=== PATIENT | male | born 1970 | race Caucasian/White ===

== ENCOUNTER 2017-12-11 22:57 | Inpatient (IN) | payer OTHER ==
[~2017-12-11] VITALS: Ht 182.9 cm; Wt 95.3 kg
[~2017-12-11 22:57] MED LIST: ACYCLOVIR 400400 MG PO; AMBIEN 5 MG TABL5 M1 PO; BACTRIM DS TAB1 EACH PO; LASIX 40 MG TAB40 M2 PO; MELATONIN3 MG PO; NOXAFIL100 MG PO; POTASSIUM20 PO; PREDNISONE 10 M10 MG PO; PROTONIX40 M4 PO; TOPROL XL25 MG PO; URSO FORTE500 M1 PO; VITAMIN D2400 UNIT PO; ZOFRAN ODT4 MG PO
[2017-12-11 22:58] VITALS: BP 139/77
[2017-12-11 23:15] LABS: HEMATOCRIT 42.3 % (42.0-52.0); HEMOGLOBIN 14.2 gm/dL (14.0-18.0); MCH 32.7 pg (26.0-34.0); MCHC 33.5 g/dL (28.0-37.0); MCV 97.4 fL (80.0-100.0); MPV 8.5 fl. (7.2-11.1); NUCLEATED RBCS 0 /100WBC; PLATELET COUNT* 416 thou/uL (150-400); RBC 4.34 mil/uL (4.50-6.00); WBC 22.5 thou/uL (4.0-11.0)
[2017-12-11 23:26] LABS: ANION GAP 18 mmol/L (7-16); BUN 22 mg/dL (7-18); CALCIUM 8.2 mg/dL (8.5-10.1); CHLORIDE 99 mmol/L (98-107); CO2 20 mmol/L (21-32); CREATININE 1.3 mg/dL (0.6-1.3); GLUCOSE 154 mg/dL (70-99); POTASSIUM 4.3 mmol/L (3.5-5.1); SODIUM 137 mmol/L (136-145)
[2017-12-11 23:26] LABS: URINE BILIRUBIN NEGATIVE (Negative); URINE BLOOD 2+ (Negative); URINE CLARITY CLEAR; URINE COLOR YELLOW; URINE GLUCOSE-RANDOM NEGATIVE (Negative); URINE KETONES NEGATIVE (Negative); URINE LEUKOCYTES-REFLEX 1+ (Negative); URINE NITRITE-REFLEX NEGATIVE (Negative); URINE PROTEIN TRACE (Negative); URINE SPECIFIC GRAVITY >= 1.030 (1.005-1.030); URINE UROBILINOGEN 0.2 E.U./dl (0.2-1.0)
[2017-12-11 23:30] LABS: PROTIME 9.6 Seconds (9.20-11.50)
[2017-12-11 23:33] LABS: AMP/METHAMP Negative (Negative); BARBITURATES Negative (Negative); BENZODIAZEPINES Negative (Negative); COCAINE Negative (Negative); METHADONE Negative (Negative); OPIATES Negative (Negative); PCP Negative (Negative); THC POSITIVE (Negative)
[2017-12-11 23:36] LABS: SQUAMOUS 0-3 Few /LPF (0-3); TRANSITIONAL EPITHEL CELL 4-10 Moderate /LPF (None Seen)
[2017-12-11 23:37] LABS: AMORPHOUS URATES Moderate /LPF (None Seen); BACTERIA-REFLEX >30 Many /HPF (None Seen); CASTS None Seen /LPF (None Seen); MUCUS 4-6 Moderate strn/LPF (None Seen); URINE WBC-REFLEX >25 Many /HPF (0-5); WBC CLUMPS Few (None Seen)
[2017-12-11 23:38] LABS: ALBUMIN 3.4 g/dL (3.4-5.0); ALKALINE PHOSPHATASE 119 U/L (46-116); LIPASE 161 U/L (73-393); NT-PRO BRAIN NAT PEPTIDE 1013 pg/mL (<300); SGOT 49 U/L (15-37); SGPT 80 U/L (30-65); TOTAL BILIRUBIN 0.3 mg/dL (<0.1-1.0); TOTAL PROTEIN 6.4 g/dL (6.4-8.2); TROPONIN-I LEVEL <0.06 ng/mL (<0.06)
[2017-12-12] VITALS (18 sets, daily range): BP systolic 118–141; BP diastolic 63–81
[2017-12-12 00:09] LABS: INFLUENZA A ANTIGEN None Detected (None Detect); INFLUENZA B ANTIGEN None Detected (None Detect)
[2017-12-12 00:58] LABS: ABSOLUTE LYMPHOCYTES 2.5 thou/uL (0.8-5.3); ABSOLUTE MONOCYTES 1.4 thou/uL (0.0-1.2); ABSOLUTE NEUTROPHILS 18.7 thou/uL (1.6-8.1); CLUMPED PLTS FEW; PLATELET ESTIMATE ADEQUATE; TOXIC GRANULATION 1+
[2017-12-12 06:30] LABS: MAGNESIUM 2.1 mg/dL (1.8-2.4); PHOSPHORUS* 2.6 mg/dL (2.5-4.9)
[2017-12-12 09:10] LABS: ABSOLUTE BASOPHILS 0.1 thou/uL (0.0-0.2); ABSOLUTE LYMPHOCYTES 2.4 thou/uL (0.8-5.3); ABSOLUTE MONOCYTES 1.9 thou/uL (0.0-1.2); ABSOLUTE NEUTROPHILS 22.9 thou/uL (1.6-8.1); BASOPHILS 0.4 %; EOSINOPHILS 0.1 %; HEMOGLOBIN 12.6 gm/dL (14.0-18.0); LYMPHOCYTES 8.9 %; MCH 32.6 pg (26.0-34.0); MCHC 34.1 g/dL (28.0-37.0); MCV 95.7 fL (80.0-100.0); MONOCYTES 6.9 %; MPV 8.4 fl. (7.2-11.1); NUCLEATED RBCS 0 /100WBC; PLATELET COUNT* 352 thou/uL (150-400); POLYS 83.7 %; RBC 3.87 mil/uL (4.50-6.00); RDW-CV 15.4 % (10.5-14.5); WBC 27.3 thou/uL (4.0-11.0)
[2017-12-12 09:35] LABS: ALBUMIN 2.9 g/dL (3.4-5.0); CALCIUM 7.3 mg/dL (8.5-10.1); CREATININE 0.8 mg/dL (0.6-1.3); POTASSIUM 3.6 mmol/L (3.5-5.1); TOTAL BILIRUBIN 0.4 mg/dL (<0.1-1.0); TOTAL PROTEIN 5.3 g/dL (6.4-8.2)
--- NOTE | 2017-12-12 10:33 | EKG ---
[place] [address] ELECTROCARDIOGRAM REPORT Name: ARMIN LITTLE Room: [address] ADM IN .R.#: [id number] Admission: 12/12/17 Attend Phys: Leslye Leyva Discharge: Date of : 68 Report #: [id number] THIS REPORT FOR: //name// [facility] ED Test Date: 2017-12-11 Test Time: 23:02:54 Pat Name: ARMIN LITTLE Department: Room: [facility] Gender: M Route Delivery Driver: SHAKIRA Bagley : 1970 Requested By: Yamileth Caba Order Number: [id number] MD: Pio Leonard Measurements Intervals [place] Rate: 69 P: 59 UT: 135 QRS: 59 QRSD: 103 T: 53 QT: 465 QTc: 499 Interpretive Statements Sinus rhythm Probable left atrial enlargement Borderline prolonged QT interval Compared to ECG 06/25/2016 16:55:03 Sinus bradycardia no longer present Atrial premature complex(es) no longer present Electronically Signed On 12-12-2017 10:33:31 SUBSTITUTE TEACHER by Pio Leonard [email or web address] <ELECTRONICALLY SIGNED> By: Pio Leonard MD, [facility] 12/12/17 1033 01 01 Pio Leonard MD, [facility] /EPI
--- NOTE | 2017-12-13 09:19 | CON ---
[address] [address] CONSULTATION Name: ARMIN LITTLE Room: [address] IN M.R.#: [id number] Admission: 12/12/17 Attend Phys: Leslye Leyva Discharge: 12/12/17 Date of : 68 Report #: [id number] THIS REPORT FOR: //name// CC: AIXA Larios DATE OF SERVICE: 12/12/2017 INFECTIOUS DISEASE CONSULTATION ATTENDING PHYSICIAN: Dr. Larios. REASON FOR EVALUATION: Complicated urinary tract infection with sepsis. HISTORY OF PRESENT ILLNESS: Chart reviewed, the patient examined. This is a 47-year-old male with previous history of leukemia, who underwent stem cell transplant in 2015, who reports no particular problems, although there was referral in the H and P of possible wqsgl-fehvuo-pbry disease. He is on chronic corticosteroids as well as some antibiotic prophylaxis. He apparently had fairly abrupt onset of profound encephalopathy which was quite combative. There was a question of seizure activity. He did apparently dislocate his left shoulder during the episode and he was resisting assistance in a manner when the EMS arrived and he was given ketamine. It is not clear that he had any recent fevers. He denies significant pulmonary or gastrointestinal related complaints at this point. Evaluation including urinalysis which showed marked pyuria as well as marked bacteriuria. He did have mildly elevated liver function tests. Lactic acid was 8.0, repeat is down to 5.5. Influenza antigen was negative. White blood cell count was 22.5. Chest x-ray showed no acute process. He was empirically started on piperacillin and tazobactam. He states he is better and actually wants to go home, although he does admit to being quite fatigued. ALLERGIES: None. CURRENT MEDICATIONS: Include enoxaparin, melatonin, zolpidem and levofloxacin was started today. He is on posaconazole, pantoprazole, prednisone 10 daily, metoprolol, cholecalciferol, acyclovir, p.r.n. analgesics and antiemetics. He is not on pressor support. PAST MEDICAL HISTORY: As described above. There is also a previous brain aneurysm rupture in 2016, RSV, history of PTSD and anxiety. SOCIAL HISTORY: Former smoker. No ethanol. Occasionally uses marijuana. FAMILY HISTORY: Noncontributory. REVIEW OF SYSTEMS: [place] [address] CONSULTATION Name: ARMIN LITTLE Room: [address]#: [id number] Admission: 12/12/17 Attend Phys: Leslye Leyva Discharge: 12/12/17 Date of : 68 Report #: [id number] PHYSICAL EXAMINATION: GENERAL: He appears somewhat chronically ill, slightly undernourished. VITAL SIGNS: Temperature 98.1, pulse 79, respirations 12 and blood pressure 124/72. SKIN: Warm, dry. No rashes. HEENT: Otherwise, unremarkable. NECK: Supple. LUNGS: Somewhat diminished. Occasional crackle at the base. HEART: Regular. I do not appreciate a murmur. ABDOMEN: Soft, nontender and nondistended. No peritoneal signs. GENITOURINARY: Deferred. RECTAL: Deferred. LABORATORY DATA: CTA chest PE protocol showed a right peritracheal mass, consistent with calcified lymph node. Lactic acid serially was 8.0, 4.[address] abdomen and pelvis, there was no evidence of acute process. The CT head shows left craniotomy defect and aneurysm clips along the left temporal fossa, consistent with prior clipping. CBC: White count 22.5, H and H 14.2 and 43.3 and platelets of 416,000. He did have 1+ toxic granulations and a monocytosis of 1400. Influenza antigen was negative. Alcohol less than 10. Sodium 137, potassium 4.3, chloride 99, bicarbonate is 20, anion gap of 18, BUN and creatinine 22 and 1.3 and glucose of 154. AST of 49, ALT of 80 and total bilirubin of 0.3. Lipase of 161 and a positive screen for marijuana. Urinalysis greater than 25 white cells with some few wbc clumps and greater than 30 bacteria. ASSESSMENT AND PLAN: Complicated urinary tract infection with early sepsis. We will continue therapy with piperacillin-tazobactam. I think we can adjust the dose downward slightly. He will await the identification of any organisms that may grow from the urine or the blood at this point. He seems to have responded fairly quickly at this point and his hemodynamics have improved. His mental status is clearly improved. We will maintain his current prophylactic regimen as well. <ELECTRONICALLY SIGNED> By: Meir Peters MD 12/13/17 0919 0909 [id number] Peters MD /nt
--- NOTE | 2017-12-16 07:23 | EEG ---
[address] [address] EEG STUDY REPORT Name: ARMIN LITTLE Room: [address] IN M.R.#: [id number] Admission: 12/12/17 Attend Phys: Leslye Leyva Discharge: 12/12/17 Date of : 68 Report #: [id number] THIS REPORT FOR: //name// CC: AIXA Larios DATE OF SERVICE: 12/12/2017 This patient is being evaluated for seizure disorder. EEG was done by placing the electrodes by standard 10-20 system of electrode placement. Both referential and sequential montages were used for recording. Background activity in this patient's EEG is about 8-9 Hz and 30 microvolt. The patient goes to sleep that is associated with bilateral slowing and vertex sharp waves. The patient had an episode where the patient demonstrated recurrent sharper activity arising from the left temporal lobe. IMPRESSION: This patient's EEG demonstrates an episode of recurrent sharper activity arising from the left temporal lobe. If clinically correlated, that finding will be consistent with the diagnosis of seizure disorder arising from the left temporal lobe. Clinical correlation is recommended. Thank you very much for this referral. <ELECTRONICALLY SIGNED> By: Kashif Gibson MD 12/16/17 0723 1728 [id number] Gibson MD /nt
--- NOTE | 2017-12-16 07:23 | CON ---
[facility] [address] [place] [address] CONSULTATION Name: ARMIN LITTLE Room: [address] IN M.R.#: [id number] Admission: 12/12/17 Attend Phys: Leslye Leyva Discharge: 12/12/17 Date of : 68 Report #: [id number] THIS REPORT FOR: //name// CC: AIXA Larios DATE OF SERVICE: 12/12/2017 HISTORY OF PRESENT ILLNESS: This is a 47-year-old male patient who was evaluated by me for a seizure. The history is from the patient's . I did talk to admitting physician, Dr. Montgomery and I discussed the patient with the nurses looking after this patient. described a pretty typical seizure. This patient had turned towards one side. He had a loud cry followed by stiffness and followed by jerking motions. His tongue was sore after that and he was confused after that. He was seen in the Emergency Room. He was given Keppra one dose in the Emergency Room at that time. He keeps having some episodes where his speech stops in the middle of the sentence and he looks dazed according to the . These episodes have been happening the whole day. REVIEW OF SYSTEMS: Very extensive in this patient. This patient has a history of a cerebral aneurysm rupture. He has encephalomalacia secondary to that. His neurological deficit is difficult to tell. According to the , he did have some speech difficulty, but otherwise he was not able to go back to work, but able to function. He thinks he may have been on seizure medications during the aneurysm surgery, but not after that. I reviewed the record in the computer and it looks like he was given Keppra when he presented here with a subarachnoid hemorrhage. He is running a temperature. 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 PHYSICAL EXAMINATION: Pretty limited. The patient is alert. He can follow commands, but he is not oriented. He did not know what hospital he was in, but he knew he was in [facility]. I tried to do rest of the neurological examination, but because of his orientation, it was difficult. Looks like he can move all four extremities. He can move his eyes in multiple directions. He does not appear to be in much respiratory distress. His vital signs indicate that he did have a temperature of 100.4, his blood pressure 125/68, respirations 17 and pulse is 67. IMAGING: I reviewed his CT scan as well as EEG. CT scan shows left craniotomy and left sided infarct. EEG demonstrates seizure activity arising from that infarct. IMPRESSION: My feeling was that this patient had a seizure and he continued to have partial seizures. He is being transferred to [facility] [place] [address] CONSULTATION Name: ARMIN LITTLE Room: [address] IN [facility].#: [id number] Admission: 12/12/17 Attend Phys: Leslye Leyva Discharge: 12/12/17 Date of : 68 Report #: [id number] 500 mg of Keppra and I gave him another 500 mg of Keppra. If his episode does not stop, we need to give him more seizure medication or may even have to give him alternate medication like Vimpat or Dilantin, but I was told that they are just waiting for ambulance to pick him up. Even then, I wanted him to have Keppra before ____ and the nurses have told me that they will give him Keppra before he goes. They must take seizure precautions. More than 50 minutes of time was spent taking care of this patient today and majority of the time was spent counseling the family and the patient and coordinating his care by reviewing his prior records, his imaging study as well as talking to another health director of home care hospice. <ELECTRONICALLY SIGNED> By: Kashif Gibson MD 12/16/17 0723 1818 [id number] Gibson MD /oumou
[2018-06-11] MEDS ORDERED: SERTRALINE HCL50 MG PO (15:40)
[2018-06-11] MEDS ORDERED: REMERON15 MG PO ×2 (15:43→15:44)
== END 2017-12-12 20:07 | disposition short-term general hospital (02) | DRG 871 ==
LOC: M.ERS 22:57 → M.TBA-ER 12-12 01:26 → M.ICU 12-12 01:26
PROVIDERS: Emergency Medicine; ADMIT Internal Medicine
PROC: 4A00X4Z Measurement of Central Nervous Electrical Activity, External Approach (ICD-10-PCS; principal; 2017-12-12)
PROC: 0RSKXZZ Reposition Left Shoulder Joint, External Approach (ICD-10-PCS; principal; 2017-12-12)
DX: A41.9 Sepsis, unspecified organism (principal); G92 Toxic encephalopathy; I61.9 Nontraumatic intracerebral hemorrhage, unspecified; N39.0 Urinary tract infection, site not specified; G40.109 Localization-related (focal) (partial) symptomatic epilepsy and epileptic syndromes with simple partial seizures, not intractable, without status epilepticus; Z94.84 Stem cells transplant status; F41.9 Anxiety disorder, unspecified; F43.10 Post-traumatic stress disorder, unspecified; I10 Essential (primary) hypertension; K21.9 Gastro-esophageal reflux disease without esophagitis; S43.015A Anterior dislocation of left humerus, initial encounter; X58.XXXA Exposure to other specified factors, initial encounter; Z79.899 Other long term (current) drug therapy; Z79.52 Long term (current) use of systemic steroids; Z87.891 Personal history of nicotine dependence; Z86.73 Personal history of transient ischemic attack (TIA), and cerebral infarction without residual deficits; Z85.6 Personal history of leukemia; Y93.89 Activity, other specified; Y92.89 Other specified places as the place of occurrence of the external cause; Y99.8 Other external cause status

== ENCOUNTER 2017-12-25 09:03 | Emergency (ER) | payer OTHER ==
[~2017-12-25] VITALS: Ht 167.6 cm; Wt 88.9 kg
[2017-12-25] MEDS ORDERED: KEPPRA 500 MG500 M1 PO (09:13)
[2017-12-25] MEDS ORDERED: NORCO 5-325 TA1 EACH PO (10:58)
[2017-12-25 11:00] VITALS: BP 164/89
[2018-06-11] MEDS ORDERED: SERTRALINE HCL50 MG PO (15:40)
[2018-06-11] MEDS ORDERED: REMERON15 MG PO ×2 (15:43→15:44)
== END 2017-12-25 11:00 | disposition home or self-care (01) ==
LOC: M.ERS 09:03
DX: S43.005A Unspecified dislocation of left shoulder joint, initial encounter (principal); X58.XXXA Exposure to other specified factors, initial encounter; Y93.89 Activity, other specified; Y92.89 Other specified places as the place of occurrence of the external cause; Y99.8 Other external cause status

== ENCOUNTER 2018-06-11 15:20 | Emergency (ER) | payer OTHER, MEDICARE ==
[~2018-06-11] VITALS: Ht 182.9 cm; Wt 75.8 kg
[~2018-06-11 15:20] MED LIST changes: +KEPPRA 500 MG500 M1 PO; +NORCO 5-325 TA1 EACH PO
[2018-06-11] MEDS ORDERED: SERTRALINE HCL50 MG PO ×2 (15:40)
[2018-06-11] MEDS ORDERED: PRAVACHOL40 MG PO (15:40)
[2018-06-11] MEDS ORDERED: VITAMIN D325 GM PO (15:41)
[2018-06-11] MEDS ORDERED: RAPAMUNE1 MG PO (15:42)
[2018-06-11] MEDS ORDERED: REMERON15 MG PO ×3 (15:43→15:44)
[2018-06-11] MEDS ORDERED: OXYCONTIN15 MG PO (15:44)
[2018-06-11] MEDS ORDERED: LEXAPRO 10 MG T10 M2 PO (15:44)
[2018-06-11] MEDS ORDERED: MS CONTIN15 MG PO (15:45)
[2018-06-11] MEDS ORDERED: CYCLOBENZAPRINE5 MG PO (15:45)
[2018-06-11 15:58] LABS: ABSOLUTE BASOPHILS 0.1 thou/uL (0.0-0.2); ABSOLUTE LYMPHOCYTES 1.7 thou/uL (0.8-5.3); ABSOLUTE MONOCYTES 0.9 thou/uL (0.0-1.2); ABSOLUTE NEUTROPHILS 11.7 thou/uL (1.6-8.1); EOSINOPHILS 0.1 %; HEMATOCRIT 38.4 % (42.0-52.0); HEMOGLOBIN 12.9 gm/dL (14.0-18.0); LYMPHOCYTES 11.6 %; MCH 29.6 pg (26.0-34.0); MCHC 33.6 g/dL (28.0-37.0); MCV 88.1 fL (80.0-100.0); MONOCYTES 6.5 %; NUCLEATED RBCS 0 /100WBC; PLATELET COUNT* 661 thou/uL (150-400); POLYS 80.8 %; RBC 4.35 mil/uL (4.50-6.00); WBC 14.5 thou/uL (4.0-11.0)
[2018-06-11 16:12] LABS: ANION GAP 12 mmol/L (7-16); BUN 7 mg/dL (7-18); CALCIUM 8.9 mg/dL (8.5-10.1); CHLORIDE 100 mmol/L (98-107); CO2 23 mmol/L (21-32); CREATININE 0.8 mg/dL (0.6-1.3); GLUCOSE 119 mg/dL (70-99); POTASSIUM 3.6 mmol/L (3.5-5.1); SODIUM 135 mmol/L (136-145)
[2018-06-11 16:18] LABS: ALBUMIN 3.4 g/dL (3.4-5.0); ALKALINE PHOSPHATASE 113 U/L (46-116); LIPASE 62 U/L (73-393); SGOT 22 U/L (15-37); SGPT 21 U/L (30-65); TOTAL BILIRUBIN 0.2 mg/dL (<0.1-1.0); TOTAL PROTEIN 6.7 g/dL (6.4-8.2); TROPONIN-I LEVEL <0.06 ng/mL (<0.06)
[2018-06-11 17:03] LABS: URINE BILIRUBIN NEGATIVE (Negative); URINE BLOOD NEGATIVE (Negative); URINE CLARITY CLEAR; URINE COLOR YELLOW; URINE GLUCOSE-RANDOM NEGATIVE (Negative); URINE KETONES 1+ (Negative); URINE LEUKOCYTES-REFLEX NEGATIVE (Negative); URINE NITRITE-REFLEX NEGATIVE (Negative); URINE PROTEIN NEGATIVE (Negative); URINE SPECIFIC GRAVITY 1.015 (1.005-1.030); URINE UROBILINOGEN 0.2 E.U./dl (0.2-1.0)
[2018-06-11] MEDS ORDERED: DOXYCYCLINE 10100 M1 PO (17:23)
[2018-06-11] MEDS ORDERED: PHENERGAN 25 MG25 M1 PO (17:23)
[2018-06-11 18:02] VITALS: BP 138/89
== END 2018-06-11 18:04 | disposition home or self-care (01) ==
LOC: M.ERS 15:20
PROVIDERS: Emergency Medicine Emergency Medical Services
DX: R11.0 Nausea (principal); R06.02 Shortness of breath; R10.12 Left upper quadrant pain; I10 Essential (primary) hypertension; Z87.891 Personal history of nicotine dependence

== ENCOUNTER 2018-06-11 18:57 | Emergency (ER) | payer OTHER, MEDICARE ==
[~2018-06-11] VITALS: Ht 182.9 cm; Wt 77.1 kg
[~2018-06-11 18:57] MED LIST changes: +CYCLOBENZAPRINE5 MG PO; +DOXYCYCLINE 10100 M1 PO; +LEXAPRO 10 MG T10 M2 PO; +MS CONTIN15 MG PO; +OXYCONTIN15 MG PO; +PHENERGAN 25 MG25 M1 PO; +PRAVACHOL40 MG PO; +RAPAMUNE1 MG PO; +REMERON15 MG PO; +SERTRALINE HCL50 MG PO; +VITAMIN D325 GM PO
[2018-06-11 20:15] LABS: ABSOLUTE BASOPHILS 0.2 thou/uL (0.0-0.2); ABSOLUTE LYMPHOCYTES 1.7 thou/uL (0.8-5.3); ABSOLUTE MONOCYTES 0.6 thou/uL (0.0-1.2); ABSOLUTE NEUTROPHILS 11.9 thou/uL (1.6-8.1); BASOPHILS 1.1 %; HEMATOCRIT 39.2 % (42.0-52.0); HEMOGLOBIN 12.9 gm/dL (14.0-18.0); LYMPHOCYTES 12.1 %; MCHC 32.8 g/dL (28.0-37.0); MCV 88.5 fL (80.0-100.0); MONOCYTES 4.3 %; MPV 7.2 fl. (7.2-11.1); NUCLEATED RBCS 0 /100WBC; PLATELET COUNT* 688 thou/uL (150-400); POLYS 82.5 %; RBC 4.43 mil/uL (4.50-6.00); RDW-CV 15.9 % (10.5-14.5); WBC 14.4 thou/uL (4.0-11.0)
[2018-06-11 20:20] LABS: ANION GAP 13 mmol/L (7-16); BUN 6 mg/dL (7-18); CALCIUM 8.7 mg/dL (8.5-10.1); CHLORIDE 100 mmol/L (98-107); CO2 23 mmol/L (21-32); CREATININE 0.9 mg/dL (0.6-1.3); GLUCOSE 141 mg/dL (70-99); POTASSIUM 3.5 mmol/L (3.5-5.1); SODIUM 136 mmol/L (136-145)
[2018-06-11 20:27] LABS: ALBUMIN 3.5 g/dL (3.4-5.0); ALKALINE PHOSPHATASE 116 U/L (46-116); LIPASE 47 U/L (73-393); SGOT 21 U/L (15-37); SGPT 21 U/L (30-65); TOTAL BILIRUBIN 0.3 mg/dL (<0.1-1.0); TOTAL PROTEIN 6.7 g/dL (6.4-8.2); TROPONIN-I LEVEL <0.06 ng/mL (<0.06)
[2018-06-11 23:29] LABS: AMP/METHAMP Negative (Negative); BARBITURATES Negative (Negative); BENZODIAZEPINES Negative (Negative); COCAINE Negative (Negative); METHADONE Negative (Negative); OPIATES POSITIVE (Negative); PCP Negative (Negative); THC POSITIVE (Negative)
[2018-06-11 23:50] VITALS: BP 136/84
--- NOTE | 2018-06-12 10:24 | EKG ---
[place] [address] ELECTROCARDIOGRAM REPORT Name: ARMIN LITTLE [id number] Admission: 06/11/18 Attend Phys: Discharge: 06/11/18 Date of : 68 Report #: [id number] THIS REPORT FOR: //name// [facility] ED Test Date: 2018-06-11 Test Time: 16:07:54 Pat Name: ARMIN LITTLE Department: Room: Gender: M Strawhat Blocking Operator: : 1970 Requested By: Stewart Palacios Order Number: [id number] MD: Tai Marshall Measurements Intervals [place] Rate: 86 P: -88 [place]: 120 QRS: 52 QRSD: 102 T: 65 QT: 446 QTc: 534 Interpretive Statements Ectopic atrial rhythm Prolonged QT interval Compared to ECG 12/11/2017 23:02:54 Ectopic atrial rhythm now present Sinus rhythm no longer present Electronically Signed On 06-12-2018 10:24:42 CDT by Tai Marshall [email or web address] <ELECTRONICALLY SIGNED> By: Tai Marshall MD, [facility] 06/12/18 1024 1607 160 Tai Marshall MD, [facility] /EPI
--- NOTE | 2018-06-12 10:25 | EKG ---
[place] [address] ELECTROCARDIOGRAM REPORT Name: ARMIN LITTLE [id number] Admission: 06/11/18 Attend Phys: Discharge: 06/11/18 Date of : 68 Report #: [id number] THIS REPORT FOR: //name// [facility] ED Test Date: 2018-06-11 Test Time: 20:17:32 Pat Name: ARMIN SIDNEY Department: Room: Gender: M Tufting Supervisor: MARIA LUZ : 1970 Requested By: Yamileth Caba Order Number: [id number] MD: Tai Marshall Measurements Intervals [place] Rate: 80 P: 35 [place]: 146 QRS: 27 QRSD: 107 T: 56 QT: 447 QTc: 516 Interpretive Statements Sinus rhythm Probable left atrial enlargement Incomplete left bundle branch block Borderline low voltage, extremity leads Prolonged QT interval Baseline wander in lead(s) V2 Compared to ECG 12/11/2017 23:02:54 Left bundle-branch block now present Electronically Signed On 06-12-2018 10:25:01 CDT by Tai Marshall [email or web address] <ELECTRONICALLY SIGNED> By: Tai Marshall MD, [facility] 06/12/18 1025 16 16 Tai Marshall MD, [facility] /EPI
== END 2018-06-11 23:54 | disposition home or self-care (01) ==
LOC: M.ERS 18:57
PROVIDERS: Emergency Medicine
DX: R11.2 Nausea with vomiting, unspecified (principal); F41.9 Anxiety disorder, unspecified; R20.2 Paresthesia of skin; I10 Essential (primary) hypertension; Z87.891 Personal history of nicotine dependence; Z79.899 Other long term (current) drug therapy

== ENCOUNTER 2018-07-01 02:56 | Emergency (ER) | payer OTHER, MEDICARE ==
[~2018-07-01] VITALS: Ht 177.8 cm; Wt 81.7 kg
[2018-07-01 03:56] LABS: HEMATOCRIT 35.7 % (42.0-52.0); HEMOGLOBIN 11.5 gm/dL (14.0-18.0); MCH 29.3 pg (26.0-34.0); MCHC 32.2 g/dL (28.0-37.0); MCV 91.1 fL (80.0-100.0); MPV 7.5 fl. (7.2-11.1); NUCLEATED RBCS 0 /100WBC; PLATELET COUNT* 557 thou/uL (150-400); RBC 3.91 mil/uL (4.50-6.00); RDW-CV 15.9 % (10.5-14.5); WBC 25.7 thou/uL (4.0-11.0)
[2018-07-01 03:59] LABS: URINE BILIRUBIN NEGATIVE (Negative); URINE BLOOD 1+ (Negative); URINE CLARITY CLEAR; URINE COLOR YELLOW; URINE GLUCOSE-RANDOM 1+ (Negative); URINE KETONES 1+ (Negative); URINE LEUKOCYTES-REFLEX NEGATIVE (Negative); URINE NITRITE-REFLEX NEGATIVE (Negative); URINE PROTEIN 2+ (Negative); URINE SPECIFIC GRAVITY >= 1.030 (1.005-1.030); URINE UROBILINOGEN 0.2 E.U./dl (0.2-1.0)
[2018-07-01 04:05] LABS: AMP/METHAMP Negative (Negative); BARBITURATES Negative (Negative); BENZODIAZEPINES POSITIVE (Negative); COCAINE Negative (Negative); METHADONE Negative (Negative); OPIATES Negative (Negative); PCP Negative (Negative); THC POSITIVE (Negative)
[2018-07-01 04:06] LABS: ANION GAP 23 mmol/L (7-16); BUN 9 mg/dL (7-18); CALCIUM 8.1 mg/dL (8.5-10.1); CHLORIDE 100 mmol/L (98-107); CO2 14 mmol/L (21-32); CREATININE 1.3 mg/dL (0.6-1.3); GLUCOSE 286 mg/dL (70-99); INR 1.1; POTASSIUM 3.2 mmol/L (3.5-5.1); PROTIME 11.1 Seconds (9.20-11.50); SODIUM 137 mmol/L (136-145)
[2018-07-01 04:17] LABS: ALBUMIN 3.2 g/dL (3.4-5.0); ALKALINE PHOSPHATASE 110 U/L (46-116); LIPASE 62 U/L (73-393); NT-PRO BRAIN NAT PEPTIDE 2896 pg/mL (<300); SGOT 43 U/L (15-37); SGPT 29 U/L (30-65); TOTAL BILIRUBIN 0.4 mg/dL (<0.1-1.0); TOTAL PROTEIN 6.5 g/dL (6.4-8.2); TROPONIN-I LEVEL <0.06 ng/mL (<0.06)
[2018-07-01 04:46] LABS: BE -4.9 mmol/L (-2 to +3); HCO3 19.1 mmol/L (22.0-26.0); PCO2 31.7 mmHg (35.0-45.0); pH 7.397 (7.340-7.450)
[2018-07-01 04:48] LABS: PO2 177.5 mmHg (75.0-100.0)
[2018-07-01 05:48] LABS: ABSOLUTE LYMPHOCYTES 0.8 thou/uL (0.8-5.3); ABSOLUTE MONOCYTES 0.5 thou/uL (0.0-1.2); ABSOLUTE NEUTROPHILS 24.4 thou/uL (1.6-8.1); ANISOCYTOSIS 1+; PLATELET ESTIMATE INCREASED
[2018-07-01 05:48] LABS: ACETAMINOPHEN < 2 ug/mL (10-30); SALICYLATE 3.3 mg/dL (2.8-20.0)
[2018-07-01 05:49] LABS: POIKILOCYTOSIS 1+
[2018-07-01 05:51] LABS: BACTERIA-REFLEX 1-9 Few /HPF (None Seen); HYALINE CASTS 0-3 Few /LPF (None Seen); MUCUS 4-6 Moderate strn/LPF (None Seen); SQUAMOUS 0-3 Few /LPF (0-3); URINE RBC 3-10 Few /HPF (0-2); URINE WBC-REFLEX 0-5 Rare /HPF (0-5)
[2018-07-01 05:52] LABS: CRYSTALS None Seen /LPF (None Seen)
[2018-07-01 06:09] VITALS: BP 112/72
--- NOTE | 2018-07-01 10:09 | EKG ---
[place] [address] ELECTROCARDIOGRAM REPORT Name: ARMIN LITTLE [id number] Admission: 07/01/18 Attend Phys: Discharge: 07/01/18 Date of : 68 Report #: [id number] THIS REPORT FOR: //name// [facility] ED Test Date: 2018-07-01 Test Time: 03:47:08 Pat Name: ARMIN LITTLE Department: Room: Gender: M Gymnastic Coach: PANDA : 1970 Requested By: Good Rodriguez Order Number: [id number] MD: Pio Leonard Measurements Intervals [place] Rate: 113 P: 53 [place]: 128 QRS: 53 QRSD: 111 T: 71 QT: 497 QTc: 682 Interpretive Statements Sinus tachycardia Left atrial enlargement Borderline ST depression, diffuse leads Prolonged QT interval Compared to ECG 06/11/2018 20:17:32 ST (T wave) deviation now present Sinus rhythm no longer present Electronically Signed On 07-01-2018 10:08:56 CDT by Pio Leonard [email or web address] <ELECTRONICALLY SIGNED> By: Pio Leonard MD, [facility] 07/01/18 1008 0347 0347 Pio Leonard MD, [facility] /EPI
== END 2018-07-01 06:11 | disposition short-term general hospital (02) ==
LOC: M.ERS 02:56
PROVIDERS: Emergency Medicine
DX: G93.40 Encephalopathy, unspecified (principal); R11.2 Nausea with vomiting, unspecified; R19.7 Diarrhea, unspecified; I10 Essential (primary) hypertension; C95.90 Leukemia, unspecified not having achieved remission; Z86.73 Personal history of transient ischemic attack (TIA), and cerebral infarction without residual deficits; Z87.891 Personal history of nicotine dependence

== ENCOUNTER 2019-09-13 05:48 | Inpatient (IN) | payer OTHER, MEDICARE ==
[~2019-09-13] VITALS: Ht 182.9 cm; Wt 80.3 kg
[~2019-09-13 05:48] MED LIST changes: -KEPPRA 500 MG500 M1 PO; +KEPPRA1000 MG PO
[2019-09-13 05:52] VITALS: BP 136/83
[2019-09-13] MEDS ORDERED: LORAZEPAM 0.50.5 MG PO (05:58)
[2019-09-13] MEDS ORDERED: LAMICTAL25 MG PO (05:58)
[2019-09-13] MEDS ORDERED: ZOFRAN8 MG PO (05:59)
[2019-09-13] MEDS ORDERED: TRAZODONE 150150 M1 PO (06:01)
[2019-09-13] MEDS ORDERED: CYMBALTA30 MG PO (06:02)
[2019-09-13 06:37] LABS: ABSOLUTE LYMPHOCYTES 1.1 thou/uL (0.8-5.3); ABSOLUTE NEUTROPHILS 11.6 thou/uL (1.6-8.1); BASOPHILS 0.3 %; HEMATOCRIT 42.9 % (42.0-52.0); HEMOGLOBIN 14.8 gm/dL (14.0-18.0); LYMPHOCYTES 7.5 %; MCH 33.3 pg (26.0-34.0); MCHC 34.5 g/dL (28.0-37.0); MCV 96.4 fL (80.0-100.0); MONOCYTES 13.7 %; MPV 7.6 fl. (7.2-11.1); NUCLEATED RBCS 0 /100WBC; PLATELET COUNT* 452 thou/uL (150-400); POLYS 78.5 %; RBC 4.45 mil/uL (4.50-6.00); RDW-CV 13.7 % (10.5-14.5); WBC 14.8 thou/uL (4.0-11.0)
[2019-09-13 06:38] LABS: CALCIUM 8.4 mg/dL (8.5-10.1); CREATININE 1.1 mg/dL (0.6-1.3)
[2019-09-13 06:47] LABS: ALBUMIN 3.3 g/dL (3.4-5.0); TOTAL BILIRUBIN 0.4 mg/dL (<0.1-1.0); TOTAL PROTEIN 7.8 g/dL (6.4-8.2)
[2019-09-13 08:40] VITALS: BP 127/88
[2019-09-13 09:24] VITALS: BP 139/88
[2019-09-13 09:25] LABS: URINE BILIRUBIN NEGATIVE (Negative); URINE BLOOD 1+ (Negative); URINE CLARITY CLEAR; URINE COLOR YELLOW; URINE GLUCOSE-RANDOM NEGATIVE (Negative); URINE KETONES TRACE (Negative); URINE LEUKOCYTES-REFLEX NEGATIVE (Negative); URINE NITRITE-REFLEX NEGATIVE (Negative); URINE PROTEIN 2+ (Negative); URINE SPECIFIC GRAVITY >= 1.030 (1.005-1.030); URINE UROBILINOGEN 0.2 E.U./dl (0.2-1.0)
[2019-09-13 09:32] LABS: SQUAMOUS 4-10 Moderate /LPF (0-3)
[2019-09-13 09:33] LABS: BACTERIA-REFLEX 1-9 Few /HPF (None Seen); CRYSTALS None Seen /LPF (None Seen); HYALINE CASTS 4-10 Moderate /LPF (None Seen); MUCUS 4-6 Moderate strn/LPF (None Seen); URINE RBC 3-10 Few /HPF (0-2); URINE WBC-REFLEX 6-15 Few /HPF (0-5)
[2019-09-13 11:22] VITALS: BP 115/74
--- NOTE | 2019-09-13 13:17 | EKG ---
[place] [address] ELECTROCARDIOGRAM REPORT Name: ARMIN LITTLE Room: [address] ADM IN .R.#: [id number] Admission: 09/13/19 Attend Phys: Leslye Leyva Discharge: Date of : 68 Report #: [id number] THIS REPORT FOR: //name// [facility] ED Test Date: 2019-09-13 Test Time: 06:10:23 Pat Name: ARMIN LITTLE Department: Room: [facility] Gender: M Occ Ther: [place] : 1970 Requested By: Good Rodriguez Order Number: [id number] MD: Pio Leonard Measurements Intervals [place] Rate: 109 P: 63 [place]: 133 QRS: 59 QRSD: 101 T: 33 QT: 345 QTc: 465 Interpretive Statements Sinus tachycardia Probable septal infarct, old Compared to ECG 07/01/2018 03:47:08 Atrial abnormality no longer present Prolonged QT interval no longer present Electronically Signed On 09-13-2019 13:17:10 SENIOR BRANCH MANAGER by Pio Leonard [email or web address] <ELECTRONICALLY SIGNED> By: Pio Leonard MD, [facility] 09/13/19 1317 0610 0610 Pio Leonard MD, [facility] /EPI
[2019-09-13 18:51] VITALS: BP 122/85
[2019-09-13 20:00] VITALS: BP 122/87
[2019-09-14] VITALS: BP 118/79
[2019-09-14 04:00] VITALS: BP 133/84
[2019-09-14 04:38] LABS: HEMATOCRIT 35.5 % (42.0-52.0); MCH 33.9 pg (26.0-34.0); MCHC 34.5 g/dL (28.0-37.0); MCV 98.3 fL (80.0-100.0); MPV 7.8 fl. (7.2-11.1); RBC 3.61 mil/uL (4.50-6.00); RDW-CV 13.8 % (10.5-14.5); WBC 11.2 thou/uL (4.0-11.0)
[2019-09-14 04:42] LABS: CALCIUM 7.8 mg/dL (8.5-10.1); CREATININE 0.7 mg/dL (0.6-1.3)
[2019-09-14 04:43] LABS: POTASSIUM 4.2 mmol/L (3.5-5.1)
[2019-09-14 04:55] LABS: HEMOGLOBIN 12.3 gm/dL (14.0-18.0)
[2019-09-14 07:45] VITALS: BP 129/87
[2019-09-14 11:45] VITALS: BP 128/82
[2019-09-14 16:00] VITALS: BP 140/88
[2019-09-14 20:19] VITALS: BP 141/80
[2019-09-15] VITALS: BP 130/84
[2019-09-15 04:00] VITALS: BP 155/87
[2019-09-15 05:43] LABS: CALCIUM 7.6 mg/dL (8.5-10.1); CREATININE 0.8 mg/dL (0.6-1.3); POTASSIUM 3.8 mmol/L (3.5-5.1)
[2019-09-15 11:00] VITALS: BP 155/87
[2019-09-15] MEDS ORDERED: AZITHROMYCIN 2250 MG PO (11:00)
[2019-09-15 12:20] VITALS: BP 139/86
== END 2019-09-15 13:05 | disposition home or self-care (01) | DRG 177 ==
LOC: M.ERS 05:48 → M.TBA-ER 07:29 → M.2W 07:29
PROVIDERS: Emergency Medicine; ADMIT Internal Medicine
DX: J15.6 Pneumonia due to other Gram-negative bacteria (principal); N17.0 Acute kidney failure with tubular necrosis; R65.10 Systemic inflammatory response syndrome (SIRS) of non-infectious origin without acute organ dysfunction; N39.0 Urinary tract infection, site not specified; Z94.84 Stem cells transplant status; I10 Essential (primary) hypertension; F12.90 Cannabis use, unspecified, uncomplicated; F41.9 Anxiety disorder, unspecified; Z87.891 Personal history of nicotine dependence; Z86.73 Personal history of transient ischemic attack (TIA), and cerebral infarction without residual deficits; Z79.899 Other long term (current) drug therapy